=== PATIENT | female | born 1985 | race Caucasian/White ===

== ENCOUNTER 2018-12-13 11:12 | Emergency (ER) | payer MEDICAID ==
[~2018-12-13] VITALS: Ht 160 cm; Wt 56.2 kg
[2018-12-13 11:19] VITALS: Ht 160 cm; Wt 56.2 kg
[2018-12-13 13:04] VITALS: BP 128/72
== END 2018-12-13 13:04 | disposition home or self-care (01) ==
LOC: ED 11:12
DX: S00.03XA Contusion of scalp, initial encounter (principal); W22.8XXA Striking against or struck by other objects, initial encounter; Y92.89 Other specified places as the place of occurrence of the external cause; Y93.89 Activity, other specified; Y99.8 Other external cause status